=== PATIENT | male | born 1975 | race Caucasian/White ===

== ENCOUNTER 2018-07-02 07:05 | Day surgery (SDC) | payer MEDICARE, MEDICAID ==
[2018-07-02] VITALS (8 sets, daily range): BP systolic 136–158; BP diastolic 83–102
[~2018-07-02] VITALS: Ht 172.7 cm; Wt 104.8 kg
[~2018-07-02 07:05] MED LIST: HYDR2TAB28 PO; INSU100V36 SQ; LIDOcaine 1% 30ml preserv. free vial SQ STA; NPH,100V SQ; OXYM10TA22 PO; PROP40TA7 PO
[2018-07-02 07:42] LABS: BASOPHILS % (AUTO) 0.6 % (0-1); EOSINOPHILS # (AUTO) 0.1 X10'3 (0-0.9); EOSINOPHILS % (AUTO) 1.2 % (0-6); HEMATOCRIT 36.6 % (42.0-52.0); HEMOGLOBIN 12.7 g/dl (14.0-17.9); LYMPHOCYTES # (AUTO) 0.9 X10'3 (1.1-4.8); LYMPHOCYTES % (AUTO) 17.4 % (21-51); MEAN CORPUSCULAR HEMOGLOBIN 28.9 PG (27.0-31.0); MEAN CORPUSCULAR HGB CONC 34.7 g/dL (33.0-36.5); MEAN CORPUSCULAR VOLUME 83.3 FL (78-98); MEAN PLATELET VOLUME 8.9 FL (7.4-10.4); MONOCYTES # (AUTO) 0.6 X10'3 (0-0.9); MONOCYTES % (AUTO) 11.6 % (2-12); NEUTROPHILS # (AUTO) 3.4 X10'3 (1.8-7.7); NEUTROPHILS % (AUTO) 69.2 % (42-75); PLATELET COUNT 119 X10'3 (140-440); RED BLOOD COUNT 4.39 X10'6 (4.70-6.10); RED CELL DISTRIBUTION WIDTH 14.8 % (11.5-14.5); WHITE BLOOD COUNT 4.9 X10'3 (4.5-11.0)
[2018-07-02 07:49] LABS: ALBUMIN 2.5 G/DL (3.4-5.0); ANION GAP 8 (8-16); BLOOD UREA NITROGEN 16 MG/DL (7-18); BUN/CREATININE RATIO 22.9 (5.4-32.0); CHLORIDE 96 MMOL/L (99-107); GLUCOSE 233 MG/DL (70-104); POTASSIUM 4.3 MMOL/L (3.5-5.1); SODIUM 132 MMOL/L (135-145); TOTAL CARBON DIOXIDE 28.2 MMOL/L (24-32); eGFR > 90 ML/MIN
[2018-07-02] MEDS ORDERED: ceFAZolin 1GM/D5W- ADD-VANTAGE 50 ML IV ONE (07:52)
[2018-07-02] MEDS ORDERED: normal saline 1000ml 1,000 ML IV PRN (07:55)
[2018-07-02 07:57] LABS: INR 1.2 INR
[2018-07-02] MEDS ORDERED: albumin 25% 100mL bottle x 1 IV PRN (08:25)
[2018-07-02] MEDS ORDERED: FURO-149 PO (08:28)
[2018-07-02] MEDS ORDERED: LANTUS SQ (08:28)
[2018-07-02] MEDS ORDERED: MUPI22OI30 TOP (08:28)
[2018-07-02] MEDS ORDERED: DOXY-200 PO (08:28)
[2018-07-02] MEDS ORDERED: ATR0.5NEB NEB (08:28)
[2018-07-02] MEDS ORDERED: HYDROCODONE PO (08:28)
[2018-07-02] MEDS ORDERED: SPIR100T5 PO (08:28)
[2018-07-02 11:37] LABS: ALBUMIN,BODY FLUID 0.7 G/DL; GLUCOSE,BODY FLUID 235 MG/DL; LDH,BODY FLUID 95 U/L
[2018-07-02 11:58] LABS: TOTAL PROTEIN,BODY FLUID < 2.0 G/DL
== END 2018-07-02 11:15 | disposition home or self-care (01) ==
LOC: SSTAY O 07:05
PROVIDERS: ATTEND Radiology Diagnostic Radiology
DX: R18.8 Other ascites (principal); K74.60 Unspecified cirrhosis of liver; I81 Portal vein thrombosis; J45.909 Unspecified asthma, uncomplicated; I10 Essential (primary) hypertension; K21.9 Gastro-esophageal reflux disease without esophagitis; E11.42 Type 2 diabetes mellitus with diabetic polyneuropathy; F41.9 Anxiety disorder, unspecified; Z98.890 Other specified postprocedural states; Z88.8 Allergy status to other drugs, medicaments and biological substances; Z88.1 Allergy status to other antibiotic agents; Z88.0 Allergy status to penicillin; Z88.2 Allergy status to sulfonamides; Z88.6 Allergy status to analgesic agent; Z91.013 Allergy to seafood; Z79.4 Long term (current) use of insulin; Z79.899 Other long term (current) drug therapy
CPT/HCPCS: 36415; 49083; 76700; 80048; 82042; 82945; 82948; 83615; 84157; 85025; 85610; 87070; 93975; C1729; J3490; J7030; P9047; 88108; 88305

== ENCOUNTER 2018-09-17 07:03 | Day surgery (SDC) | payer MEDICARE, MEDICAID ==
[2018-09-17] VITALS (9 sets, daily range): BP systolic 110–137; BP diastolic 47–78
[~2018-09-17] VITALS: Ht 172.7 cm; Wt 98.9 kg
[~2018-09-17 07:03] MED LIST changes: +ATR0.5NEB NEB; +DOXY-200 PO; +FURO-149 PO; +LANTUS SQ; -LIDOcaine 1% 30ml preserv. free vial SQ STA; -NPH,100V SQ; -OXYM10TA22 PO; -PROP40TA7 PO; +SPIR100T5 PO; +ZAR2.5T PO
[2018-09-17] MEDS ORDERED: normal saline 1000ml 1,000 ML IV PRN (07:40)
[2018-09-17] MEDS: albumin 25% 100mL bottle x 1 IV PRN ×2 (09:32→10:06)
== END 2018-09-17 10:15 | disposition home or self-care (01) ==
LOC: SSTAY O 07:03
PROVIDERS: ATTEND Radiology Diagnostic Radiology
DX: R18.8 Other ascites (principal); K74.60 Unspecified cirrhosis of liver; J45.909 Unspecified asthma, uncomplicated; F41.9 Anxiety disorder, unspecified; I10 Essential (primary) hypertension; K21.9 Gastro-esophageal reflux disease without esophagitis; E11.42 Type 2 diabetes mellitus with diabetic polyneuropathy; Z79.4 Long term (current) use of insulin; Z79.899 Other long term (current) drug therapy; Z98.890 Other specified postprocedural states
CPT/HCPCS: 49083; 82948; C1729; J7030; P9047

== ENCOUNTER 2018-10-01 09:06 | Day surgery (SDC) | payer MEDICARE, MEDICAID ==
[~2018-10-01] VITALS: Ht 172.7 cm; Wt 101.2 kg
[~2018-10-01 09:06] MED LIST changes: -DOXY-200 PO; +DOXY-243 PO
[2018-10-01 09:30] VITALS: BP 154/89
[2018-10-01] MEDS ORDERED: albumin 25% 100mL bottle x 1 IV PRN (09:30)
[2018-10-01] MEDS ORDERED: normal saline 1000ml 1,000 ML IV PRN (09:30)
[2018-10-01 09:51] VITALS: BP 126/81
[2018-10-01 10:06] VITALS: BP 123/66
[2018-10-01 10:15] VITALS: BP 112/65
[2018-10-01 10:45] VITALS: BP 120/76
== END 2018-10-01 10:45 | disposition home or self-care (01) ==
LOC: SSTAY O 09:06
PROVIDERS: ATTEND Radiology Vascular & Interventional Radiology
DX: R18.8 Other ascites (principal); K74.60 Unspecified cirrhosis of liver; J45.909 Unspecified asthma, uncomplicated; F41.9 Anxiety disorder, unspecified; I10 Essential (primary) hypertension; K21.9 Gastro-esophageal reflux disease without esophagitis; E11.40 Type 2 diabetes mellitus with diabetic neuropathy, unspecified; E11.620 Type 2 diabetes mellitus with diabetic dermatitis; Z98.890 Other specified postprocedural states; Z91.013 Allergy to seafood; Z88.8 Allergy status to other drugs, medicaments and biological substances; Z88.0 Allergy status to penicillin; Z91.041 Radiographic dye allergy status; Z79.899 Other long term (current) drug therapy; Z79.4 Long term (current) use of insulin; Z88.5 Allergy status to narcotic agent
CPT/HCPCS: 49083; C1729; J7030; P9047

== ENCOUNTER 2018-10-08 08:27 | Day surgery (SDC) | payer MEDICARE, MEDICAID ==
[~2018-10-08] VITALS: Ht 175.3 cm; Wt 98.3 kg
[2018-10-08] MEDS ORDERED: normal saline 1000ml 1,000 ML IV PRN (08:55)
[2018-10-08] MEDS ORDERED: albumin 25% 100mL bottle x 1 IV PRN (08:55)
[2018-10-08 09:00] VITALS: BP 131/77
[2018-10-08 09:15] VITALS: BP 135/85
[2018-10-08 09:30] VITALS: BP 120/67
[2018-10-08 09:45] VITALS: BP 106/64
[2018-10-08] MEDS ORDERED: FURO80TA87 PO (09:58)
[2018-10-08] MEDS ORDERED: IPRA4AER IH (09:58)
[2018-10-08 10:00] VITALS: BP 104/40
[2018-10-08 10:07] VITALS: BP 117/63
== END 2018-10-08 10:15 | disposition home or self-care (01) ==
LOC: SSTAY O 08:27
PROVIDERS: ATTEND Radiology Vascular & Interventional Radiology
DX: R18.8 Other ascites (principal); K74.60 Unspecified cirrhosis of liver; K75.81 Nonalcoholic steatohepatitis (NASH)
CPT/HCPCS: 49083; C1729; J7030; P9047

== ENCOUNTER 2018-10-16 07:37 | Day surgery (SDC) | payer MEDICARE, MEDICAID ==
[~2018-10-16] VITALS: Ht 172.7 cm; Wt 98.3 kg
[2018-10-16] VITALS (7 sets, daily range): BP systolic 113–145; BP diastolic 71–84
[~2018-10-16 07:37] MED LIST changes: -ATR0.5NEB NEB; -DOXY-243 PO; -FURO-149 PO; +FURO80TA87 PO; +IPRA4AER IH
[2018-10-16] MEDS ORDERED: normal saline 1000ml 1,000 ML IV PRN (08:00)
[2018-10-16] MEDS ORDERED: albumin 25% 100mL bottle x 1 IV PRN (08:00)
[2018-10-16] MEDS ORDERED: BUDE10.22 INH (08:46)
[2018-10-16] MEDS ORDERED: ALBU18HF2 INH (08:46)
== END 2018-10-16 11:50 | disposition home or self-care (01) ==
LOC: SSTAY O 07:37
PROVIDERS: ATTEND Radiology Diagnostic Radiology
DX: R18.8 Other ascites (principal); J90 Pleural effusion, not elsewhere classified; K74.60 Unspecified cirrhosis of liver
CPT/HCPCS: 32555; 49083; 71045; C1729; J7030; P9047

== ENCOUNTER 2018-10-23 08:26 | Day surgery (SDC) | payer MEDICARE, MEDICAID ==
[~2018-10-23] VITALS: Ht 172.7 cm; Wt 96.9 kg
[2018-10-23] VITALS (8 sets, daily range): BP systolic 103–155; BP diastolic 60–80
[~2018-10-23 08:26] MED LIST changes: +ALBU18HF2 INH; +BUDE10.22 INH; -IPRA4AER IH
[2018-10-23] MEDS ORDERED: normal saline 1000ml 1,000 ML IV PRN (08:45)
[2018-10-23] MEDS ORDERED: albumin 25% 100mL bottle x 1 IV PRN (08:45)
== END 2018-10-23 12:05 | disposition home or self-care (01) ==
LOC: SSTAY O 08:26
PROVIDERS: ATTEND Radiology Diagnostic Radiology
DX: J90 Pleural effusion, not elsewhere classified (principal); R18.8 Other ascites; K74.60 Unspecified cirrhosis of liver; E11.40 Type 2 diabetes mellitus with diabetic neuropathy, unspecified; J45.909 Unspecified asthma, uncomplicated; F41.9 Anxiety disorder, unspecified; I10 Essential (primary) hypertension; K21.9 Gastro-esophageal reflux disease without esophagitis; Z98.890 Other specified postprocedural states; Z79.899 Other long term (current) drug therapy; Z79.84 Long term (current) use of oral hypoglycemic drugs; Z88.0 Allergy status to penicillin; Z88.8 Allergy status to other drugs, medicaments and biological substances; Z91.013 Allergy to seafood; Z91.041 Radiographic dye allergy status
CPT/HCPCS: 32555; 49083; 71045; C1729; J7030; P9047; 76937

== ENCOUNTER 2018-10-30 08:13 | Day surgery (SDC) | payer MEDICARE, MEDICAID ==
[2018-10-30] VITALS (9 sets, daily range): BP systolic 104–125; BP diastolic 60–82
[~2018-10-30] VITALS: Ht 172.7 cm; Wt 97.0 kg
[2018-10-30] MEDS ORDERED: albumin 25% 100mL bottle x 1 IV PRN (09:05)
[2018-10-30] MEDS ORDERED: FURO80TA3 PO (09:05)
[2018-10-30] MEDS ORDERED: SPIR100T5 PO (09:05)
[2018-10-30] MEDS ORDERED: POLY17PO10 PO (09:05)
[2018-10-30] MEDS ORDERED: normal saline 1000ml 1,000 ML IV PRN (09:05)
== END 2018-10-30 11:55 | disposition home or self-care (01) ==
LOC: SSTAY O 08:13
PROVIDERS: ATTEND Radiology Diagnostic Radiology
DX: R18.8 Other ascites (principal); K74.60 Unspecified cirrhosis of liver; J90 Pleural effusion, not elsewhere classified; J98.11 Atelectasis; J45.909 Unspecified asthma, uncomplicated; F41.9 Anxiety disorder, unspecified; I10 Essential (primary) hypertension; K21.9 Gastro-esophageal reflux disease without esophagitis; E11.40 Type 2 diabetes mellitus with diabetic neuropathy, unspecified; Z98.890 Other specified postprocedural states; D69.59 Other secondary thrombocytopenia; Z79.899 Other long term (current) drug therapy; Z79.4 Long term (current) use of insulin; Z88.0 Allergy status to penicillin; Z91.013 Allergy to seafood; Z88.8 Allergy status to other drugs, medicaments and biological substances; Z91.041 Radiographic dye allergy status
CPT/HCPCS: 32555; 49083; 71045; C1729; J7030; P9047

== ENCOUNTER 2018-11-06 08:08 | Day surgery (SDC) | payer MEDICARE, MEDICAID ==
[~2018-11-06] VITALS: Ht 172.7 cm; Wt 93.8 kg
[~2018-11-06 08:08] MED LIST changes: +FURO80TA3 PO; -FURO80TA87 PO; +POLY17PO10 PO
[2018-11-06] MEDS ORDERED: normal saline 1000ml 1,000 ML IV PRN (08:30)
[2018-11-06] MEDS ORDERED: albumin 25% 100mL bottle x 1 IV PRN (08:30)
[2018-11-06 08:42] VITALS: BP 112/68
[2018-11-06 08:54] VITALS: BP 132/80
[2018-11-06 09:15] VITALS: BP 129/72
[2018-11-06 09:30] VITALS: BP 118/74
[2018-11-06 10:00] VITALS: BP 113/69
[2018-11-06] MEDS ORDERED: CETI10CA PO (10:00)
== END 2018-11-06 10:40 | disposition home or self-care (01) ==
LOC: SSTAY O 08:08
PROVIDERS: ATTEND Radiology Diagnostic Radiology
DX: R18.8 Other ascites (principal); K74.60 Unspecified cirrhosis of liver
CPT/HCPCS: 49083; C1729; J7030; 76937; P9047

== ENCOUNTER 2018-11-14 07:36 | Day surgery (SDC) | payer MEDICARE, MEDICAID ==
[2018-11-14] VITALS (7 sets, daily range): BP systolic 100–143; BP diastolic 41–105
[~2018-11-14] VITALS: Ht 172.7 cm; Wt 96.8 kg
[~2018-11-14 07:36] MED LIST changes: +CETI10CA PO
[2018-11-14] MEDS ORDERED: normal saline 1000ml 1,000 ML IV PRN (08:00)
[2018-11-14] MEDS ORDERED: FURO-149 PO (08:00)
[2018-11-14] MEDS ORDERED: albumin 25% 100mL bottle x 1 IV PRN (08:00)
== END 2018-11-14 10:30 | disposition home or self-care (01) ==
LOC: SSTAY O 07:36
PROVIDERS: ATTEND Radiology Vascular & Interventional Radiology
DX: R18.8 Other ascites (principal); K74.60 Unspecified cirrhosis of liver; J45.909 Unspecified asthma, uncomplicated; F41.9 Anxiety disorder, unspecified; I10 Essential (primary) hypertension; K21.9 Gastro-esophageal reflux disease without esophagitis; E11.40 Type 2 diabetes mellitus with diabetic neuropathy, unspecified; D69.6 Thrombocytopenia, unspecified; Z88.0 Allergy status to penicillin; Z88.8 Allergy status to other drugs, medicaments and biological substances; Z91.013 Allergy to seafood; Z91.041 Radiographic dye allergy status; Z79.4 Long term (current) use of insulin; Z79.899 Other long term (current) drug therapy
CPT/HCPCS: 49083; C1729; J7030; P9047

== ENCOUNTER 2018-11-19 07:46 | Day surgery (SDC) | payer MEDICARE, MEDICAID ==
[2018-11-19] VITALS (7 sets, daily range): BP systolic 128–162; BP diastolic 76–92
[~2018-11-19] VITALS: Ht 172.7 cm; Wt 98.2 kg
[~2018-11-19 07:46] MED LIST changes: +FURO-149 PO
[2018-11-19] MEDS ORDERED: albumin 25% 100mL bottle x 1 IV PRN (08:15)
[2018-11-19] MEDS ORDERED: normal saline 1000ml 1,000 ML IV PRN (08:15)
== END 2018-11-19 10:40 | disposition home or self-care (01) ==
LOC: SSTAY O 07:46
PROVIDERS: ATTEND Radiology Vascular & Interventional Radiology
DX: R18.8 Other ascites (principal); K74.60 Unspecified cirrhosis of liver; J45.909 Unspecified asthma, uncomplicated; F41.9 Anxiety disorder, unspecified; I10 Essential (primary) hypertension; K21.9 Gastro-esophageal reflux disease without esophagitis; D69.6 Thrombocytopenia, unspecified; G62.9 Polyneuropathy, unspecified; Z88.0 Allergy status to penicillin; Z88.8 Allergy status to other drugs, medicaments and biological substances; Z91.013 Allergy to seafood; Z91.041 Radiographic dye allergy status; Z79.4 Long term (current) use of insulin; Z79.899 Other long term (current) drug therapy
CPT/HCPCS: 49083; C1729; J7030; P9047

== ENCOUNTER 2018-11-25 08:10 | Day surgery (SDC) | payer MEDICARE, MEDICAID ==
[~2018-11-25] VITALS: Ht 172.7 cm; Wt 99.7 kg
[2018-11-25 08:21] VITALS: BP 133/81
[2018-11-25] MEDS ORDERED: albumin 25% 100mL bottle x 1 IV PRN (08:30)
[2018-11-25] MEDS ORDERED: normal saline 1000ml 1,000 ML IV PRN (08:30)
[2018-11-25 09:57] VITALS: BP 133/81
[2018-11-25 10:02] VITALS: BP 131/67
[2018-11-25 10:17] VITALS: BP 127/67
[2018-11-25 10:32] VITALS: BP 118/56
[2018-11-25 10:46] VITALS: BP 120/66
== END 2018-11-25 11:15 | disposition home or self-care (01) ==
LOC: SSTAY O 08:10
PROVIDERS: ATTEND Radiology Diagnostic Radiology
DX: R18.8 Other ascites (principal); K74.60 Unspecified cirrhosis of liver; J45.909 Unspecified asthma, uncomplicated; F41.9 Anxiety disorder, unspecified; I10 Essential (primary) hypertension; K21.9 Gastro-esophageal reflux disease without esophagitis; E11.40 Type 2 diabetes mellitus with diabetic neuropathy, unspecified; D69.6 Thrombocytopenia, unspecified; Z88.0 Allergy status to penicillin; Z88.8 Allergy status to other drugs, medicaments and biological substances; Z91.013 Allergy to seafood; Z91.041 Radiographic dye allergy status; Z79.899 Other long term (current) drug therapy; Z79.4 Long term (current) use of insulin; Z98.890 Other specified postprocedural states
CPT/HCPCS: 49083; C1729; J7030; P9047; 76937

== ENCOUNTER 2018-12-02 08:08 | Day surgery (SDC) | payer MEDICARE, MEDICAID ==
[~2018-12-02] VITALS: Ht 147.3 cm; Wt 101.5 kg
[~2018-12-02 08:08] MED LIST changes: -ZAR2.5T PO
[2018-12-02 08:29] VITALS: BP 132/81
[2018-12-02] MEDS ORDERED: normal saline 1000ml 1,000 ML IV PRN (08:30)
[2018-12-02] MEDS ORDERED: albumin 25% 100mL bottle x 1 IV PRN (08:30)
[2018-12-02 09:17] VITALS: BP 132/81
[2018-12-02 09:18] VITALS: BP 120/66
[2018-12-02 09:30] VITALS: BP 115/61
[2018-12-02 09:45] VITALS: BP 116/77
== END 2018-12-02 09:50 | disposition home or self-care (01) ==
LOC: SSTAY O 08:08
PROVIDERS: ATTEND Radiology Diagnostic Radiology
DX: R18.8 Other ascites (principal); K74.60 Unspecified cirrhosis of liver; J45.909 Unspecified asthma, uncomplicated; F41.9 Anxiety disorder, unspecified; I10 Essential (primary) hypertension; K21.9 Gastro-esophageal reflux disease without esophagitis; E11.40 Type 2 diabetes mellitus with diabetic neuropathy, unspecified; D69.59 Other secondary thrombocytopenia; Z98.890 Other specified postprocedural states; Z88.0 Allergy status to penicillin; Z88.8 Allergy status to other drugs, medicaments and biological substances; Z91.013 Allergy to seafood; Z91.041 Radiographic dye allergy status; Z79.4 Long term (current) use of insulin; Z79.899 Other long term (current) drug therapy
CPT/HCPCS: 49083; C1729; J7030; 76937

== ENCOUNTER 2018-12-09 07:56 | Day surgery (SDC) | payer MEDICARE, MEDICAID ==
[2018-12-09] VITALS (12 sets, daily range): BP systolic 101–127; BP diastolic 63–80
[~2018-12-09] VITALS: Ht 172.7 cm; Wt 98.9 kg
[2018-12-09] MEDS ORDERED: normal saline 1000ml 1,000 ML IV PRN (08:15)
[2018-12-09] MEDS ORDERED: albumin 25% 100mL bottle x 1 IV PRN (08:15)
== END 2018-12-09 11:50 | disposition home or self-care (01) ==
LOC: SSTAY O 07:56
PROVIDERS: ATTEND Radiology Diagnostic Radiology
DX: J90 Pleural effusion, not elsewhere classified (principal); R18.8 Other ascites; K74.60 Unspecified cirrhosis of liver; J45.909 Unspecified asthma, uncomplicated; F41.9 Anxiety disorder, unspecified; I10 Essential (primary) hypertension; K21.9 Gastro-esophageal reflux disease without esophagitis; E11.40 Type 2 diabetes mellitus with diabetic neuropathy, unspecified; D69.59 Other secondary thrombocytopenia; Z88.0 Allergy status to penicillin; Z88.8 Allergy status to other drugs, medicaments and biological substances; Z88.1 Allergy status to other antibiotic agents; Z91.013 Allergy to seafood; Z91.041 Radiographic dye allergy status; Z79.4 Long term (current) use of insulin; Z79.899 Other long term (current) drug therapy
CPT/HCPCS: 32555; 49083; 71045; C1729; J7030; P9047; 76937

== ENCOUNTER 2018-12-16 08:01 | Day surgery (SDC) | payer MEDICARE, MEDICAID ==
[~2018-12-16] VITALS: Ht 172.7 cm; Wt 101.1 kg
[2018-12-16] VITALS (10 sets, daily range): BP systolic 105–151; BP diastolic 65–92
[2018-12-16] MEDS ORDERED: normal saline 1000ml 1,000 ML IV PRN (08:20)
[2018-12-16] MEDS ORDERED: albumin 25% 100mL bottle x 1 IV PRN (10:40)
== END 2018-12-16 11:30 | disposition home or self-care (01) ==
LOC: SSTAY O 08:01
PROVIDERS: ATTEND Radiology Vascular & Interventional Radiology
DX: K74.69 Other cirrhosis of liver (principal); R18.8 Other ascites
CPT/HCPCS: 49083; 76937; J7030; P9047

== ENCOUNTER 2018-12-20 07:02 | Day surgery (SDC) | payer MEDICARE, MEDICAID ==
[~2018-12-20] VITALS: Ht 172.7 cm; Wt 99.6 kg
[2018-12-20] VITALS (10 sets, daily range): BP systolic 122–143; BP diastolic 58–89
[2018-12-20] MEDS ORDERED: normal saline 1000ml 1,000 ML IV PRN (08:25)
[2018-12-20] MEDS ORDERED: albumin 25% 100mL bottle x 1 IV PRN (08:25)
== END 2018-12-20 10:50 | disposition home or self-care (01) ==
LOC: SSTAY O 07:02
PROVIDERS: ATTEND Radiology Vascular & Interventional Radiology
DX: R18.8 Other ascites (principal); J90 Pleural effusion, not elsewhere classified; J45.909 Unspecified asthma, uncomplicated; F41.9 Anxiety disorder, unspecified; I10 Essential (primary) hypertension; K21.9 Gastro-esophageal reflux disease without esophagitis; E11.40 Type 2 diabetes mellitus with diabetic neuropathy, unspecified; D69.6 Thrombocytopenia, unspecified; Z88.0 Allergy status to penicillin; Z88.8 Allergy status to other drugs, medicaments and biological substances; Z88.5 Allergy status to narcotic agent; Z91.013 Allergy to seafood; Z88.1 Allergy status to other antibiotic agents; Z91.041 Radiographic dye allergy status; Z79.4 Long term (current) use of insulin; Z79.899 Other long term (current) drug therapy
CPT/HCPCS: 32555; 49083; 71045; C1729; J7030; P9047

== ENCOUNTER 2018-12-27 07:59 | Day surgery (SDC) | payer MEDICARE, MEDICAID ==
[~2018-12-27] VITALS: Ht 172.7 cm; Wt 97.5 kg
[2018-12-27] MEDS ORDERED: normal saline 1000ml 1,000 ML IV PRN (08:25)
[2018-12-27] MEDS ORDERED: albumin 25% 100mL bottle x 1 IV PRN (08:25)
[2018-12-27 09:30] VITALS: BP 126/77
[2018-12-27 09:45] VITALS: BP 130/76
[2018-12-27 10:00] VITALS: BP 127/94
[2018-12-27 10:15] VITALS: BP 131/72
[2018-12-27 10:30] VITALS: BP_SYST 113; BP_SYST 146; BP_DIAS 36; BP_DIAS 64
== END 2018-12-27 10:35 | disposition home or self-care (01) ==
LOC: SSTAY O 07:59
PROVIDERS: ATTEND Radiology Vascular & Interventional Radiology
DX: R18.8 Other ascites (principal); K74.60 Unspecified cirrhosis of liver; R06.02 Shortness of breath; J90 Pleural effusion, not elsewhere classified; J45.909 Unspecified asthma, uncomplicated; F41.9 Anxiety disorder, unspecified; I10 Essential (primary) hypertension; K21.9 Gastro-esophageal reflux disease without esophagitis; E11.40 Type 2 diabetes mellitus with diabetic neuropathy, unspecified; D69.59 Other secondary thrombocytopenia; Z88.0 Allergy status to penicillin; Z88.8 Allergy status to other drugs, medicaments and biological substances; Z91.013 Allergy to seafood; Z88.5 Allergy status to narcotic agent; Z88.1 Allergy status to other antibiotic agents; Z91.041 Radiographic dye allergy status; Z79.899 Other long term (current) drug therapy; Z79.4 Long term (current) use of insulin
CPT/HCPCS: 49083; 76604; C1729; J7030; P9047

== ENCOUNTER 2019-01-07 08:10 | Day surgery (SDC) | payer MEDICARE, MEDICAID ==
[2019-01-07] VITALS (7 sets, daily range): BP systolic 124–143; BP diastolic 70–84
[~2019-01-07] VITALS: Ht 172.7 cm; Wt 102.2 kg
[2019-01-07] MEDS ORDERED: normal saline 1000ml 1,000 ML IV PRN (08:40)
[2019-01-07] MEDS ORDERED: albumin 25% 100mL bottle x 1 IV PRN (08:40)
[2019-01-07] MEDS ORDERED: FLU VACC QS 2019-20 (6 MOS UP) 60 MCG/0.5 ML VIAL IMVAC ONE (10:00)
== END 2019-01-07 11:20 | disposition home or self-care (01) ==
LOC: SSTAY O 08:10
PROVIDERS: ATTEND Radiology Diagnostic Radiology
DX: R18.8 Other ascites (principal); J90 Pleural effusion, not elsewhere classified; Z23 Encounter for immunization; Z88.5 Allergy status to narcotic agent
CPT/HCPCS: 32555; 49083; 71045; C1729; G0008; J7030; P9047; Q2037

== ENCOUNTER 2019-01-13 07:23 | Day surgery (SDC) | payer MEDICARE, MEDICAID ==
[~2019-01-13] VITALS: Ht 172.7 cm; Wt 101.3 kg
[2019-01-13 07:36] VITALS: BP 140/81
[2019-01-13] MEDS ORDERED: FLUC200T PO (07:42)
[2019-01-13 09:17] VITALS: BP 117/68
[2019-01-13 09:30] VITALS: BP 121/69
[2019-01-13 09:45] VITALS: BP 131/55
[2019-01-13] MEDS ORDERED: albumin 25% 100mL bottle x 1 IV PRN (09:45)
== END 2019-01-13 09:55 | disposition home or self-care (01) ==
LOC: SSTAY O 07:23
PROVIDERS: ATTEND Radiology Vascular & Interventional Radiology
DX: R18.8 Other ascites (principal); K74.60 Unspecified cirrhosis of liver; R10.30 Lower abdominal pain, unspecified; J45.909 Unspecified asthma, uncomplicated; F41.9 Anxiety disorder, unspecified; I10 Essential (primary) hypertension; K21.9 Gastro-esophageal reflux disease without esophagitis; E11.40 Type 2 diabetes mellitus with diabetic neuropathy, unspecified; E11.620 Type 2 diabetes mellitus with diabetic dermatitis; D69.59 Other secondary thrombocytopenia; Z98.890 Other specified postprocedural states; Z88.0 Allergy status to penicillin; Z88.8 Allergy status to other drugs, medicaments and biological substances; Z91.013 Allergy to seafood; Z91.041 Radiographic dye allergy status; Z79.4 Long term (current) use of insulin; Z79.899 Other long term (current) drug therapy
CPT/HCPCS: 49083; C1729; 32555; 76937

== ENCOUNTER 2019-01-20 08:01 | Day surgery (SDC) | payer MEDICARE, MEDICAID ==
[2019-01-20] VITALS (8 sets, daily range): BP systolic 111–151; BP diastolic 63–87
[~2019-01-20] VITALS: Ht 172.7 cm; Wt 101.9 kg
[~2019-01-20 08:01] MED LIST changes: +FLUC200T PO
[2019-01-20] MEDS ORDERED: albumin 25% 100mL bottle x 1 IV PRN (08:15)
[2019-01-20] MEDS ORDERED: normal saline 1000ml 1,000 ML IV PRN (08:15)
[2019-01-20] MEDS ORDERED: IPRA4AER IH (08:30)
[2019-01-20] MEDS ORDERED: SPIR100T PO (08:30)
== END 2019-01-20 10:44 | disposition home or self-care (01) ==
LOC: SSTAY O 08:01
PROVIDERS: ATTEND Radiology Diagnostic Radiology
DX: R18.8 Other ascites (principal); J90 Pleural effusion, not elsewhere classified; K74.60 Unspecified cirrhosis of liver; J45.909 Unspecified asthma, uncomplicated; F41.9 Anxiety disorder, unspecified; I10 Essential (primary) hypertension; K21.9 Gastro-esophageal reflux disease without esophagitis; E11.40 Type 2 diabetes mellitus with diabetic neuropathy, unspecified; D69.6 Thrombocytopenia, unspecified; Z88.8 Allergy status to other drugs, medicaments and biological substances; Z88.0 Allergy status to penicillin; Z88.5 Allergy status to narcotic agent; Z91.013 Allergy to seafood; Z88.1 Allergy status to other antibiotic agents; Z91.041 Radiographic dye allergy status; Z79.899 Other long term (current) drug therapy; Z79.4 Long term (current) use of insulin
CPT/HCPCS: 32555; 49083; 71045; C1729; J7030; P9047

== ENCOUNTER 2019-01-27 07:56 | Day surgery (SDC) | payer MEDICARE, MEDICAID ==
[~2019-01-27] VITALS: Ht 172.7 cm; Wt 93.8 kg
[~2019-01-27 07:56] MED LIST changes: -ALBU18HF2 INH; +IPRA4AER IH; +SPIR100T PO; -SPIR100T5 PO
[2019-01-27 08:13] VITALS: BP 133/72
[2019-01-27] MEDS ORDERED: albumin 25% 100mL bottle x 1 IV PRN (08:20)
[2019-01-27] MEDS ORDERED: normal saline 1000ml 1,000 ML IV PRN (08:20)
[2019-01-27 08:35] VITALS: BP 127/74
[2019-01-27 08:40] VITALS: BP 127/74
[2019-01-27 08:45] VITALS: BP 117/67
[2019-01-27] MEDS ORDERED: [UNRECOGNIZED DRUG - OTHER] PO (08:53)
[2019-01-27 09:00] VITALS: BP 117/65
[2019-01-27 09:15] VITALS: BP 105/54
== END 2019-01-27 09:25 | disposition home or self-care (01) ==
LOC: SSTAY O 07:56
PROVIDERS: ATTEND Radiology Vascular & Interventional Radiology
DX: R18.8 Other ascites (principal); K74.60 Unspecified cirrhosis of liver; J45.909 Unspecified asthma, uncomplicated; F41.9 Anxiety disorder, unspecified; I10 Essential (primary) hypertension; K21.9 Gastro-esophageal reflux disease without esophagitis; E11.40 Type 2 diabetes mellitus with diabetic neuropathy, unspecified; D69.59 Other secondary thrombocytopenia; Z98.890 Other specified postprocedural states; Z88.0 Allergy status to penicillin; Z88.8 Allergy status to other drugs, medicaments and biological substances; Z88.1 Allergy status to other antibiotic agents; Z91.013 Allergy to seafood; Z88.5 Allergy status to narcotic agent; Z91.041 Radiographic dye allergy status; Z79.899 Other long term (current) drug therapy
CPT/HCPCS: 49083; C1729; J7030

== ENCOUNTER 2019-02-03 08:04 | Day surgery (SDC) | payer MEDICARE, MEDICAID ==
[~2019-02-03] VITALS: Ht 172.7 cm; Wt 88.3 kg
[~2019-02-03 08:04] MED LIST changes: -FLUC200T PO; -FURO-149 PO; -FURO80TA3 PO; +[UNRECOGNIZED DRUG - OTHER] PO
[2019-02-03 08:34] VITALS: BP 123/76
[2019-02-03] MEDS ORDERED: normal saline 1000ml 1,000 ML IV PRN (08:35)
[2019-02-03] MEDS ORDERED: albumin 25% 100mL bottle x 1 IV PRN (08:35)
[2019-02-03 09:56] VITALS: BP 130/80
[2019-02-03 10:00] VITALS: BP 110/65
[2019-02-03 10:15] VITALS: BP 120/66
== END 2019-02-03 10:25 | disposition home or self-care (01) ==
LOC: SSTAY O 08:04
PROVIDERS: ATTEND Radiology Diagnostic Radiology
DX: R18.8 Other ascites (principal); K74.69 Other cirrhosis of liver; J45.909 Unspecified asthma, uncomplicated; F41.9 Anxiety disorder, unspecified; I10 Essential (primary) hypertension; K21.9 Gastro-esophageal reflux disease without esophagitis; E11.40 Type 2 diabetes mellitus with diabetic neuropathy, unspecified; D69.59 Other secondary thrombocytopenia; Z88.0 Allergy status to penicillin; Z88.5 Allergy status to narcotic agent; Z88.8 Allergy status to other drugs, medicaments and biological substances; Z88.1 Allergy status to other antibiotic agents; Z91.013 Allergy to seafood; Z91.041 Radiographic dye allergy status; Z79.4 Long term (current) use of insulin; Z79.899 Other long term (current) drug therapy
CPT/HCPCS: 49083; C1729; J7030

== ENCOUNTER 2019-02-10 07:57 | Day surgery (SDC) | payer MEDICARE, MEDICAID ==
[~2019-02-10] VITALS: Ht 172.7 cm; Wt 85.2 kg
[2019-02-10 08:10] VITALS: BP 118/84
[2019-02-10] MEDS ORDERED: normal saline 1,000 ML IV SCH (08:20)
[2019-02-10] MEDS ORDERED: albumin 25% 100mL bottle x 1 IV PRN (08:20)
[2019-02-10] MEDS ORDERED: albumin (human) 25% 100 ML IV solution IV ONE (09:25)
== END 2019-02-10 10:15 | disposition home or self-care (01) ==
LOC: SSTAY O 07:57
PROVIDERS: ATTEND Radiology Vascular & Interventional Radiology
DX: R18.8 Other ascites (principal); J45.909 Unspecified asthma, uncomplicated; F41.9 Anxiety disorder, unspecified; K21.9 Gastro-esophageal reflux disease without esophagitis; E11.40 Type 2 diabetes mellitus with diabetic neuropathy, unspecified; D69.59 Other secondary thrombocytopenia; Z98.890 Other specified postprocedural states; Z88.0 Allergy status to penicillin; Z91.013 Allergy to seafood; Z88.5 Allergy status to narcotic agent; Z88.2 Allergy status to sulfonamides; Z91.041 Radiographic dye allergy status; Z79.4 Long term (current) use of insulin; Z79.899 Other long term (current) drug therapy
CPT/HCPCS: 76705; J7030; P9047; 76937

== ENCOUNTER 2019-02-17 07:49 | Day surgery (SDC) | payer MEDICARE, MEDICAID ==
[~2019-02-17] VITALS: Ht 172.7 cm; Wt 82.9 kg
[2019-02-17 08:01] VITALS: BP 120/73
[2019-02-17] MEDS ORDERED: normal saline 1000ml 1,000 ML IV PRN (08:15)
[2019-02-17] MEDS ORDERED: albumin 25% 100mL bottle x 1 IV PRN (08:15)
[2019-02-17 09:02] VITALS: BP_SYST 105; BP_SYST 120; BP_DIAS 71; BP_DIAS 73
[2019-02-17 09:17] VITALS: BP 109/67
== END 2019-02-17 09:25 | disposition home or self-care (01) ==
LOC: SSTAY O 07:49
PROVIDERS: ATTEND Radiology Vascular & Interventional Radiology
DX: R18.8 Other ascites (principal); Z88.5 Allergy status to narcotic agent; Z91.041 Radiographic dye allergy status
CPT/HCPCS: 49083; C1729; J7030

== ENCOUNTER 2019-03-19 09:55 | Emergency (ER) | payer BC, MEDICAID ==
[~2019-03-19] VITALS: Ht 172.7 cm; Wt 85.0 kg
--- NOTE | 2019-03-19 11:42 | NUR ---
telecommunications technician is with the patient at this time for lab draw.
--- NOTE | 2019-03-19 11:48 | NUR ---
Phoned wound care and left a message regarding the patient's bilateral lower extremities. The patient has been receiving wound care as an outpatient [facility] and the last time the dressings were changed was one week ago. The legs are swelling around the elastic coban dressings and draining yellow fluid on the linens. Pt has chronic liver failure with anasarca edema.
[2019-03-19 11:49] LABS: CLARITY,URINE CLEAR (Clear); COLOR,URINE YELLOW (Yellow); GLUCOSE, URINE NEGATIVE (Neg); KETONES,URINE NEGATIVE (Neg); LEUKOCYTE ESTERASE ,URINE NEGATIVE (Neg); NITRITES, URINE NEGATIVE (Neg); OCCULT BLOOD,URINE NEGATIVE (Neg); PH,URINE 7.5 (4.8-8.0); PROTEIN,URINE NEGATIVE (Neg)
[2019-03-19 11:50] LABS: UA COLLECTION TYPE URINAL
--- NOTE | 2019-03-19 12:00 | NUR ---
Occlusive dressings cut off of bilateral lower extremities to assess the status of the wounds.
[2019-03-19 12:02] LABS: BASOPHILS % (AUTO) 0.4 % (0-1); EOSINOPHILS # (AUTO) 0.1 X10'3 (0-0.9); EOSINOPHILS % (AUTO) 1.4 % (0-6); HEMATOCRIT 28.6 % (42.0-52.0); HEMOGLOBIN 9.4 g/dl (14.0-17.9); LYMPHOCYTES # (AUTO) 0.6 X10'3 (1.1-4.8); LYMPHOCYTES % (AUTO) 13.3 % (21-51); MEAN CORPUSCULAR HEMOGLOBIN 27.7 PG (27.0-31.0); MEAN CORPUSCULAR VOLUME 83.8 FL (78-98); MEAN PLATELET VOLUME 7.7 FL (7.4-10.4); MONOCYTES # (AUTO) 0.4 X10'3 (0-0.9); MONOCYTES % (AUTO) 7.8 % (2-12); NEUTROPHILS # (AUTO) 3.6 X10'3 (1.8-7.7); NEUTROPHILS % (AUTO) 77.1 % (42-75); PLATELET COUNT 118 X10'3 (140-440); RED BLOOD COUNT 3.41 X10'6 (4.70-6.10); RED CELL DISTRIBUTION WIDTH 19.1 % (11.5-14.5); WHITE BLOOD COUNT 4.7 X10'3 (4.5-11.0)
[2019-03-19 12:17] LABS: PARTIAL THROMBOPLASTIN TIME 29 SECONDS (22-32)
[2019-03-19 12:18] LABS: ALANINE AMINOTRANSFERASE 19 U/L (12-78); ALBUMIN/GLOBULIN RATIO 0.4 (1.1-1.5); ALKALINE PHOSPHATASE 143 IU/L (46-116); ANION GAP 5 (8-16); ASPARTATE AMINO TRANSFERASE 30 U/L (10-37); BILIRUBIN,TOTAL 1.6 MG/DL (0.1-1.0); BLOOD UREA NITROGEN 11 MG/DL (7-18); CALCIUM 8.5 MG/DL (8.5-10.1); CHLORIDE 103 MMOL/L (99-107); CREATININE 0.58 MG/DL (0.60-1.10); GLUCOSE 147 MG/DL (70-104); POTASSIUM 3.5 MMOL/L (3.5-5.1); SODIUM 140 MMOL/L (135-145); TOTAL CARBON DIOXIDE 32.2 MMOL/L (24-32); TOTAL PROTEIN 7.3 G/DL (6.4-8.2); eGFR > 90 ML/MIN
--- NOTE | 2019-03-19 12:34 | NUR ---
Phoned inpatient wound care and spoke with Wound Nurse Ivanna, she will call the [facility] to obtain the orders they have been following for his wounds and dressings then will come to the ED to assist with wound care.
--- NOTE | 2019-03-19 13:35 | NUR ---
Photos of the wounds on bilateral lower extremities taken prior to wound care bandaging them.
[2019-03-19] MEDS ORDERED: magnesium hydroxide 30ml (MOM) UD suspension PO ONE (13:45)
[2019-03-19] MEDS ORDERED: lactulose 20gm/30ml cup PO ONE (13:45)
[2019-03-19] MEDS ORDERED: furosemide 10 MG/1 ML 10ml inj IV ONE (13:45)
[2019-03-19] MEDS ORDERED: docusate sod 100mg capsule PO ONE (13:45)
--- NOTE | 2019-03-19 14:15 | NUR ---
Provider made aware the patient does not have an iv access and is a difficult IV start. Inquired if the lasix can be changed to PO instead.
--- NOTE | 2019-03-19 15:05 | NUR ---
Again asked the provider to change the lasix to PO if possible, order pending.
[2019-03-19] MEDS ORDERED: furosemide 40 MG/4 ML oral solution UD cup PO STA (15:09)
[2019-03-19] MEDS ORDERED: CEPH500C5 PO (15:34)
--- NOTE | 2019-03-19 17:11 | NUR ---
PT HAD A BM IN BED[facility].
--- NOTE | 2019-03-19 17:52 | NUR ---
Assisted patient to car via wheelchair.
[2019-03-19 19:34] VITALS: BP 124/64
== END 2019-03-19 17:45 | disposition home or self-care (01) ==
LOC: ER 09:55
DX: I89.0 Lymphedema, not elsewhere classified (principal); K59.00 Constipation, unspecified; K74.60 Unspecified cirrhosis of liver; R10.11 Right upper quadrant pain; J45.909 Unspecified asthma, uncomplicated; E11.9 Type 2 diabetes mellitus without complications; G89.29 Other chronic pain; Z88.6 Allergy status to analgesic agent; Z88.0 Allergy status to penicillin; Z88.5 Allergy status to narcotic agent; Z91.013 Allergy to seafood; Z91.041 Radiographic dye allergy status; Z79.4 Long term (current) use of insulin; Z79.899 Other long term (current) drug therapy
CPT/HCPCS: 36415; 74021; 80053; 81003; 82140; 82948; 85025; 85610; 85730; 99284

== ENCOUNTER 2019-06-19 11:59 | Inpatient (IN) | payer BC, MEDICAID ==
[~2019-06-19] VITALS: Ht 172.7 cm; Wt 85.9 kg
[~2019-06-19 11:59] MED LIST changes: -BUDE10.22 INH; +CEPH250T PO; +FURO-149 PO; +HYDR50CA PO; +LACT10SO32 PO; -POLY17PO10 PO; +RIFA550T PO; -[UNRECOGNIZED DRUG - OTHER] PO
[2019-06-19] MEDS ORDERED: cefepime 2g/NS 100ml ADVANTAGE 100 ML IV ONE (12:05)
[2019-06-19] MEDS ORDERED: vancomycin/NS 1 GM ADD-VANTAGE 250 ML IV ONE (12:05)
[2019-06-19 12:56] LABS: BASOPHILS % (AUTO) 0.4 % (0-1); EOSINOPHILS # (AUTO) 0.1 X10'3 (0-0.9); EOSINOPHILS % (AUTO) 1.3 % (0-6); HEMATOCRIT 29.2 % (42.0-52.0); HEMOGLOBIN 9.9 g/dl (14.0-17.9); LYMPHOCYTES # (AUTO) 0.7 X10'3 (1.1-4.8); LYMPHOCYTES % (AUTO) 7.1 % (21-51); MEAN CORPUSCULAR HEMOGLOBIN 32.2 PG (27.0-31.0); MEAN CORPUSCULAR HGB CONC 33.8 g/dL (33.0-36.5); MEAN CORPUSCULAR VOLUME 95.1 FL (78-98); MEAN PLATELET VOLUME 7.7 FL (7.4-10.4); MONOCYTES # (AUTO) 0.8 X10'3 (0-0.9); MONOCYTES % (AUTO) 7.7 % (2-12); NEUTROPHILS # (AUTO) 8.3 X10'3 (1.8-7.7); NEUTROPHILS % (AUTO) 83.5 % (42-75); PLATELET COUNT 118 X10'3 (140-440); RED BLOOD COUNT 3.07 X10'6 (4.70-6.10)
[2019-06-19 13:08] LABS: PARTIAL THROMBOPLASTIN TIME 38 SECONDS (22-32)
[2019-06-19 13:10] LABS: ALANINE AMINOTRANSFERASE 32 U/L (12-78); ALBUMIN 1.6 G/DL (3.4-5.0); ALBUMIN/GLOBULIN RATIO 0.3 (1.1-1.5); ALKALINE PHOSPHATASE 134 IU/L (46-116); ANION GAP -1 (8-16); ASPARTATE AMINO TRANSFERASE 68 U/L (10-37); BILIRUBIN,TOTAL 1.7 MG/DL (0.1-1.0); BLOOD UREA NITROGEN 27 MG/DL (7-18); BUN/CREATININE RATIO 38.6 (5.4-32.0); CALCIUM 8.4 MG/DL (8.5-10.1); CHLORIDE 99 MMOL/L (99-107); MAGNESIUM 1.7 MG/DL (1.5-2.4); POTASSIUM 4.7 MMOL/L (3.5-5.1); SODIUM 137 MMOL/L (135-145); TOTAL PROTEIN 6.7 G/DL (6.4-8.2); eGFR > 90 ML/MIN
[2019-06-19 13:18] LABS: GLUCOSE 174 MG/DL (70-104)
[2019-06-19] MEDS ORDERED: FURO80TA3 PO (13:21)
[2019-06-19] MEDS ORDERED: LACT10SO57 PO (13:24)
[2019-06-19] MEDS ORDERED: BUDE10.22 INH (13:39)
[2019-06-19] MEDS ORDERED: [UNRECOGNIZED DRUG - OTHER] PO (13:39)
[2019-06-19 14:08] LABS: CLARITY,URINE CLEAR (Clear); COLOR,URINE YELLOW (Yellow); GLUCOSE, URINE NEGATIVE (Neg); KETONES,URINE NEGATIVE (Neg); LEUKOCYTE ESTERASE ,URINE TRACE (Neg); NITRITES, URINE NEGATIVE (Neg); OCCULT BLOOD,URINE NEGATIVE (Neg); PH,URINE 6.5 (4.8-8.0); PROTEIN,URINE NEGATIVE (Neg); UA COLLECTION TYPE URINAL
[2019-06-19 14:18] LABS: BACTERIA,URINE FEW /HPF (Neg); MUCUS STRANDS FEW /LPF (Neg); SQUAMOUS EPITHELIAL CELL,UR FEW /LPF (FEW)
[2019-06-19 14:19] LABS: RBC,URINE 0-2 /HPF (0-2); WBC,URINE 0-4 /HPF (0-4)
--- NOTE | 2019-06-19 15:38 | NUR ---
pt resting comfortably offered pt blanket, will continue to monitor, awating ipa
[2019-06-19] MEDS: normal saline 1000ml 1,000 ML IV SCH (16:28)
[2019-06-19] MEDS ORDERED: HYDROcodone/acetaminophen 5mg/325mg tablet PO PRN (16:30)
[2019-06-19] MEDS ORDERED: acetaminophen 325mg tablet PO PRN ×2 (16:30)
[2019-06-19] MEDS ORDERED: potassium CL 10mEq/100ml bag 100 ML IV PRN ×2 (16:30)
[2019-06-19] MEDS ORDERED: morphine 2 MG/ML inj. syringe IV PRN (16:30)
[2019-06-19] MEDS ORDERED: magnesium 2GM in 50ml NS 50 ML IV PRN (16:30)
[2019-06-19] MEDS ORDERED: magnesium Cl slow-release 64mg tablet PO PRN (16:30)
[2019-06-19] MEDS ORDERED: magnesium 4gm in 100ml NS 100 ML IV PRN (16:30)
[2019-06-19] MEDS ORDERED: mag hydrox/Alum hydrox/simeth 30ml oral suspension PO PRN (16:30)
[2019-06-19] MEDS ORDERED: potassium Cl 20 mEq SR tablet PO PRN ×2 (16:30)
[2019-06-19] MEDS ORDERED: dextrose ORAL solution 15 GM/59 ML bottle PO PRN ×2 (16:50)
[2019-06-19] MEDS ORDERED: MESSAGE TO PHARMACY PO ONE (16:50)
[2019-06-19] MEDS ORDERED: glucagon, human recombinant 1mg kit SUBCUT PRN (16:50)
[2019-06-19] MEDS ORDERED: dextrose 50%-water 50ml dispensing syringe IV PRN ×2 (16:50)
[2019-06-19] MEDS ORDERED: insulin Lispro (HumaLOG) vial - multi-dose SQ SCH (16:50)
--- NOTE | 2019-06-19 16:56 | NUR ---
pt had a1c may 12 2019 5.1
[2019-06-19] MEDS ORDERED: VANCOmycin 1250MG/NS 250ml Bag 250 ML IV SCH (17:00)
[2019-06-19 20:00] VITALS: BP 118/64
[2019-06-19] MEDS: K and/or MAG REPLACEMENT MC SCH (20:00)
[2019-06-19] MEDS: docusate sod 100mg capsule PO SCH (20:37)
[2019-06-19] MEDS: heparin, porcine 5000 units/ml vial SQ SCH (20:39)
[2019-06-19] MEDS ORDERED: insulin glargine (Lantus) pen - multi-dose SQ SCH (21:00)
[2019-06-19] MEDS ORDERED: temazepam 15mg capsule PO PRN (21:00)
[2019-06-19] MEDS: VANCOmycin 1250MG/NS 250ml Bag 250 ML IV SCH (21:30)
[2019-06-20] VITALS: BP 114/63
[2019-06-20] MEDS: VANCOmycin 1250MG/NS 250ml Bag 250 ML IV SCH ×4 (05:20→20:45)
[2019-06-20 06:06] LABS: BASOPHILS % (AUTO) 0.2 % (0-1); EOSINOPHILS # (AUTO) 0.1 X10'3 (0-0.9); EOSINOPHILS % (AUTO) 1.2 % (0-6); HEMATOCRIT 26.3 % (42.0-52.0); HEMOGLOBIN 8.8 g/dl (14.0-17.9); LYMPHOCYTES # (AUTO) 0.8 X10'3 (1.1-4.8); LYMPHOCYTES % (AUTO) 13.6 % (21-51); MEAN CORPUSCULAR HGB CONC 33.4 g/dL (33.0-36.5); MEAN CORPUSCULAR VOLUME 95.8 FL (78-98); MEAN PLATELET VOLUME 8.2 FL (7.4-10.4); MONOCYTES # (AUTO) 0.5 X10'3 (0-0.9); MONOCYTES % (AUTO) 8.6 % (2-12); NEUTROPHILS # (AUTO) 4.7 X10'3 (1.8-7.7); NEUTROPHILS % (AUTO) 76.4 % (42-75); PLATELET COUNT 103 X10'3 (140-440); RED BLOOD COUNT 2.75 X10'6 (4.70-6.10); RED CELL DISTRIBUTION WIDTH 17.2 % (11.5-14.5); WHITE BLOOD COUNT 6.1 X10'3 (4.5-11.0)
[2019-06-20 06:25] LABS: ALANINE AMINOTRANSFERASE 25 U/L (12-78); ALBUMIN 1.3 G/DL (3.4-5.0); ALBUMIN/GLOBULIN RATIO 0.3 (1.1-1.5); ALKALINE PHOSPHATASE 113 IU/L (46-116); ANION GAP -2 (8-16); ASPARTATE AMINO TRANSFERASE 41 U/L (10-37); BILIRUBIN,TOTAL 1.2 MG/DL (0.1-1.0); BLOOD UREA NITROGEN 24 MG/DL (7-18); BUN/CREATININE RATIO 35.3 (5.4-32.0); CALCIUM 7.9 MG/DL (8.5-10.1); CHLORIDE 102 MMOL/L (99-107); CREATININE 0.68 MG/DL (0.60-1.10); MAGNESIUM 1.6 MG/DL (1.5-2.4); POTASSIUM 4.4 MMOL/L (3.5-5.1); SODIUM 139 MMOL/L (135-145); TOTAL CARBON DIOXIDE 39.4 MMOL/L (24-32); TOTAL PROTEIN 5.7 G/DL (6.4-8.2); eGFR > 90 ML/MIN
--- NOTE | 2019-06-20 06:25 | NUR ---
Patient in room [facility]. I have received report from TINY Hernandez and had the opportunity to ask questions and assume patient care.
[2019-06-20 06:26] LABS: GLUCOSE 172 MG/DL (70-104)
[2019-06-20 06:30] VITALS: BP 109/52
[2019-06-20] MEDS: normal saline 1000ml 1,000 ML IV SCH ×2 (06:46→11:02)
[2019-06-20] MEDS: K and/or MAG REPLACEMENT MC SCH ×2 (07:04→20:00)
[2019-06-20] MEDS ORDERED: ipratropium/albuterol 3ml nebule IH PRN (08:30)
[2019-06-20] MEDS: budesonide 0.5mg/2ml UD nebule IH SCH ×2 (09:00→20:21)
[2019-06-20] MEDS: lactulose 20gm/30ml cup PO SCH (09:24)
[2019-06-20] MEDS: lactobacillus rhamnosus 10,000 MMU CELLS/CAPSULE PO SCH ×2 (09:24→20:23)
[2019-06-20] MEDS: cetirizine 10mg tablet PO SCH (09:25)
[2019-06-20] MEDS: heparin, porcine 5000 units/ml vial SQ SCH ×2 (09:25→20:25)
[2019-06-20] MEDS: docusate sod 100mg capsule PO SCH ×2 (09:25→20:23)
[2019-06-20] MEDS: HYDROcodone/acetaminophen 10/325mg tab PO PRN ×2 (09:27→20:23)
[2019-06-20] MEDS: rifaximin 550mg tablet PO SCH ×2 (10:54→20:24)
[2019-06-20] MEDS: ketorolac tromethamine 15mg/ml inj. IV PRN (10:55)
[2019-06-20 11:00] VITALS: BP 135/65
[2019-06-20] MEDS: albuterol 2.5 MG/3 ML nebule NEB SCH ×2 (14:35→20:20)
--- NOTE | 2019-06-20 15:12 | NUR ---
DM/wound consult: Pt with A1c 4.8, down from 5.1 last month per records. DM education not warranted at this time. Per [facility] notes pt with partial thick venous ulcer to left calf and foot, full thick venous ulcer somewhat necrotic to right ankle, and necrotic DM ulcer to left 5th toe and right 1st metatarsal head. Pt currently on a CHO controlled diet documented with 100% PO intake. D/w dietary to send double protein TID for additional protein needs. Attempted visit with pt however pt unavailable. Pt recently admitted and seen by RADHA for protein education. Pt reports he drinks protein shakes and eats protein bars for increased protein needs. Pt would benefit from protein smoothie made with Chano for wound healing needs, paged MD regarding ONS recommendation. LB 06/19. Will continue to follow and monitor need for further nutrition intervention. Recommendations: 1) Continue CHO controlled diet 2) Double eggs q breakfast, double protein BIDLD 3) [place] smoothie BIDBD, pending MD approval in [employer] 4) Routine bowel care 5) Wt per rx Addendum: 06/20/19 at [address] Amended: Links added.
--- NOTE | 2019-06-20 18:20 | NUR ---
Problems reprioritized. Patient report given, questions answered & plan of care reviewed with TINY Vincent.
--- NOTE | 2019-06-20 18:41 | NUR ---
Patient in room [facility]. I have received report from DAVID FRANKS and had the opportunity to ask questions and assume patient care. Addendum: 06/20/19 at 1841 by Melisa Samson RN Amended: Links added.
[2019-06-20 19:00] VITALS: BP 127/61
[2019-06-20] MEDS ORDERED: glucagon, human recombinant 1mg kit SUBCUT PRN (19:30)
[2019-06-20] MEDS ORDERED: dextrose ORAL solution 15 GM/59 ML bottle PO PRN ×2 (19:30)
[2019-06-20] MEDS ORDERED: insulin Lispro (HumaLOG) vial - multi-dose SQ SCH (19:30)
[2019-06-20] MEDS ORDERED: MESSAGE TO PHARMACY PO ONE (19:30)
[2019-06-20] MEDS ORDERED: dextrose 50%-water 50ml dispensing syringe IV PRN ×2 (19:30)
--- NOTE | 2019-06-20 19:50 | NUR ---
pt took hs meds medicated for c/o pain with po norco for this.
[2019-06-20] MEDS ORDERED: VANCOMYCIN LEVEL IV ONE (20:30)
[2019-06-20] MEDS ORDERED: insulin glargine (Lantus) pen - multi-dose SQ SCH (21:00)
--- NOTE | 2019-06-20 21:00 | NUR ---
pt a/o pleasant no complaints at this time.
--- NOTE | 2019-06-20 23:00 | NUR ---
pt resting eyes closed no changes.
[2019-06-21] VITALS: BP 113/52
--- NOTE | 2019-06-21 01:00 | NUR ---
resting eyes closed without changes up in chair states he feels his breathing is better.
[2019-06-21] MEDS: albuterol 2.5 MG/3 ML nebule NEB SCH ×4 (02:41→20:36)
[2019-06-21] MEDS: normal saline 1000ml 1,000 ML IV SCH (02:53)
--- NOTE | 2019-06-21 03:00 | NUR ---
pt a/ rt completed tx and new bag iv solution hung on pt tolerated well. pt denies complaints at this time.
--- NOTE | 2019-06-21 03:32 | NUR ---
Problems reprioritized. Patient report given, questions answered & plan of care reviewed with Марина Parish Rn.
--- NOTE | 2019-06-21 03:45 | NUR ---
Patient in room [facility] 346. I have received report from KATHERINE FRANKS and had the opportunity to ask questions and assume patient care.
[2019-06-21 05:24] LABS: BASOPHILS % (AUTO) 0.4 % (0-1); EOSINOPHILS # (AUTO) 0.1 X10'3 (0-0.9); EOSINOPHILS % (AUTO) 2.1 % (0-6); HEMATOCRIT 28.5 % (42.0-52.0); HEMOGLOBIN 9.4 g/dl (14.0-17.9); LYMPHOCYTES # (AUTO) 0.8 X10'3 (1.1-4.8); LYMPHOCYTES % (AUTO) 16.1 % (21-51); MEAN CORPUSCULAR HEMOGLOBIN 31.4 PG (27.0-31.0); MEAN CORPUSCULAR HGB CONC 32.9 g/dL (33.0-36.5); MEAN CORPUSCULAR VOLUME 95.4 FL (78-98); MEAN PLATELET VOLUME 7.8 FL (7.4-10.4); MONOCYTES # (AUTO) 0.5 X10'3 (0-0.9); NEUTROPHILS # (AUTO) 3.6 X10'3 (1.8-7.7); NEUTROPHILS % (AUTO) 71.4 % (42-75); PLATELET COUNT 115 X10'3 (140-440); RED BLOOD COUNT 2.99 X10'6 (4.70-6.10); RED CELL DISTRIBUTION WIDTH 17.6 % (11.5-14.5)
[2019-06-21] MEDS: VANCOmycin 1250MG/NS 250ml Bag 250 ML IV SCH ×3 (05:25→20:44)
[2019-06-21 05:40] LABS: ALANINE AMINOTRANSFERASE 26 U/L (12-78); ALBUMIN 1.4 G/DL (3.4-5.0); ALBUMIN/GLOBULIN RATIO 0.3 (1.1-1.5); ALKALINE PHOSPHATASE 119 IU/L (46-116); ANION GAP -3 (8-16); ASPARTATE AMINO TRANSFERASE 49 U/L (10-37); BILIRUBIN,TOTAL 1.1 MG/DL (0.1-1.0); BLOOD UREA NITROGEN 24 MG/DL (7-18); BUN/CREATININE RATIO 34.3 (5.4-32.0); CALCIUM 8.4 MG/DL (8.5-10.1); CHLORIDE 102 MMOL/L (99-107); MAGNESIUM 1.8 MG/DL (1.5-2.4); POTASSIUM 4.3 MMOL/L (3.5-5.1); SODIUM 139 MMOL/L (135-145); TOTAL CARBON DIOXIDE 39.5 MMOL/L (24-32); TOTAL PROTEIN 6.1 G/DL (6.4-8.2); eGFR > 90 ML/MIN
[2019-06-21 05:43] LABS: GLUCOSE 152 MG/DL (70-104)
--- NOTE | 2019-06-21 06:30 | NUR ---
Problems reprioritized. Patient report given, questions answered & plan of care reviewed with VICTORINA FRANKS.
[2019-06-21 07:00] VITALS: BP 122/65
[2019-06-21] MEDS: JUVEN Smoothie Arginine/Glut./Ca2+Bmb (Juven 19.3pkt) 240ml cup PO SCH ×2 (07:30→12:44)
[2019-06-21] MEDS: K and/or MAG REPLACEMENT MC SCH ×2 (08:00→20:00)
[2019-06-21] MEDS: docusate sod 100mg capsule PO SCH ×2 (08:15→20:44)
[2019-06-21] MEDS: lactobacillus rhamnosus 10,000 MMU CELLS/CAPSULE PO SCH ×2 (08:15→20:44)
[2019-06-21] MEDS: cetirizine 10mg tablet PO SCH (08:15)
[2019-06-21] MEDS: rifaximin 550mg tablet PO SCH ×2 (08:15→20:44)
[2019-06-21] MEDS: budesonide 0.5mg/2ml UD nebule IH SCH ×2 (08:16→20:36)
[2019-06-21] MEDS: lactulose 20gm/30ml cup PO SCH (08:16)
[2019-06-21] MEDS: heparin, porcine 5000 units/ml vial SQ SCH ×3 (08:19→20:45)
[2019-06-21] MEDS: ondansetron/PF 4mg/2ml inj IV PRN (09:52)
[2019-06-21] MEDS: ketorolac tromethamine 15mg/ml inj. IV PRN (09:53)
[2019-06-21] MEDS: piperacillin/tazo 3.375gm/50ml 50 ML IV SCH ×3 (10:12→23:21)
[2019-06-21 11:00] VITALS: BP 112/62
[2019-06-21] MEDS ORDERED: ringers solution, lacted 1,000 ML IV ONE (14:59)
--- NOTE | 2019-06-21 18:20 | NUR ---
Problems reprioritized. Patient report given, questions answered & plan of care reviewed with Melisa FRANKS.
--- NOTE | 2019-06-21 18:48 | NUR ---
Patient in room [facility] 346. I have received report from VICTORINA FRANKS and had the opportunity to ask questions and assume patient care. Addendum: 06/21/19 at 1849 by Melisa Samson RN Amended: Links added.
[2019-06-21 19:00] VITALS: BP_SYST 113; BP_SYST 126; BP_DIAS 57; BP_DIAS 72
--- NOTE | 2019-06-21 22:12 | NUR ---
legs elevated resting in chair . appears comfortable without s&s of distress at this time.
[2019-06-21] MEDS: HYDROcodone/acetaminophen 10/325mg tab PO PRN (23:21)
--- NOTE | 2019-06-21 23:22 | NUR ---
pt awoke inc of urine and ski8n care done. medicated for pain to legs 10/12. legs elevated and dressing retaped d/i to left foot.
[2019-06-22] VITALS (18 sets, daily range): BP systolic 102–128; BP diastolic 50–74
--- NOTE | 2019-06-22 01:09 | NUR ---
pt awake in chair. surgical bath completed NPO since midnight and positioned to comfort. using urinal to void. dressings on legs intact.
[2019-06-22] MEDS: normal saline 1000ml 1,000 ML IV SCH ×2 (01:40→16:01)
--- NOTE | 2019-06-22 02:00 | NUR ---
PT DRESSINGS TO FEET PART CUT OFF THEN REINFORRCED WITH NEW ABD PAD AND KURLIX WRAP. FEET WEEPING MORE TONIGHT. PT TRANSFERRED WITH NEGATIVE TOE WEIGHT BOOTS SHOES ON WITH PIVOT INTO BED. PT TOLERATED FAIR. LEGS ELEVATED UP ON PILLOWS. RT IN TO DO RESP TX AT THIS TIME. PT POSITIONED IN BED TO COMFORT.
[2019-06-22] MEDS: albuterol 2.5 MG/3 ML nebule NEB SCH ×4 (02:11→20:04)
--- NOTE | 2019-06-22 03:48 | NUR ---
in bed resting remains npo no s&s of distress at this time.
[2019-06-22 05:11] LABS: BASOPHILS % (AUTO) 0.4 % (0-1); EOSINOPHILS # (AUTO) 0.1 X10'3 (0-0.9); EOSINOPHILS % (AUTO) 2.5 % (0-6); HEMOGLOBIN 8.9 g/dl (14.0-17.9); LYMPHOCYTES # (AUTO) 0.9 X10'3 (1.1-4.8); LYMPHOCYTES % (AUTO) 16.2 % (21-51); MEAN CORPUSCULAR HEMOGLOBIN 31.9 PG (27.0-31.0); MEAN CORPUSCULAR HGB CONC 33.1 g/dL (33.0-36.5); MEAN CORPUSCULAR VOLUME 96.4 FL (78-98); MEAN PLATELET VOLUME 7.9 FL (7.4-10.4); MONOCYTES # (AUTO) 0.6 X10'3 (0-0.9); MONOCYTES % (AUTO) 10.8 % (2-12); NEUTROPHILS # (AUTO) 3.8 X10'3 (1.8-7.7); NEUTROPHILS % (AUTO) 70.1 % (42-75); PLATELET COUNT 120 X10'3 (140-440); RED CELL DISTRIBUTION WIDTH 17.2 % (11.5-14.5); WHITE BLOOD COUNT 5.5 X10'3 (4.5-11.0)
[2019-06-22 05:22] LABS: ALANINE AMINOTRANSFERASE 28 U/L (12-78); ALBUMIN 1.3 G/DL (3.4-5.0); ALBUMIN/GLOBULIN RATIO 0.3 (1.1-1.5); ALKALINE PHOSPHATASE 122 IU/L (46-116); ANION GAP -5 (8-16); ASPARTATE AMINO TRANSFERASE 47 U/L (10-37); BILIRUBIN,TOTAL 1.1 MG/DL (0.1-1.0); BLOOD UREA NITROGEN 23 MG/DL (7-18); BUN/CREATININE RATIO 33.3 (5.4-32.0); CALCIUM 8.3 MG/DL (8.5-10.1); CHLORIDE 103 MMOL/L (99-107); CREATININE 0.69 MG/DL (0.60-1.10); MAGNESIUM 1.9 MG/DL (1.5-2.4); SODIUM 137 MMOL/L (135-145); TOTAL CARBON DIOXIDE 38.5 MMOL/L (24-32); TOTAL PROTEIN 5.9 G/DL (6.4-8.2); eGFR > 90 ML/MIN
[2019-06-22] MEDS: JUVEN Smoothie Arginine/Glut./Ca2+Bmb (Juven 19.3pkt) 240ml cup PO SCH ×2 (05:23→12:30)
[2019-06-22 05:24] LABS: GLUCOSE 122 MG/DL (70-104)
[2019-06-22] MEDS: VANCOmycin 1250MG/NS 250ml Bag 250 ML IV SCH ×3 (05:25→22:41)
--- NOTE | 2019-06-22 05:30 | NUR ---
PT REQUESTED WATER REMINDED HIM HE IS NPO FOR SURGERY. HELD AM PROTEIN SHAKE FOR PT AND NPO SIGN AT THE DOOR. PT NPO SINCE MIDNIGHT. DOZING ON AND OFF.
[2019-06-22] MEDS ORDERED: famotidine 20mg tablet PO ONE (06:00)
--- NOTE | 2019-06-22 06:35 | NUR ---
Problems reprioritized. Patient report given, questions answered & plan of care reviewed with ESTEBAN SUN RN. Addendum: 06/22/19 at 0635 by Melisa Samson RN Amended: Links added.
--- NOTE | 2019-06-22 06:45 | NUR ---
Patient in room [facility] 346A. I have received report from TINY MURPHY and had the opportunity to ask questions and assume patient care.
[2019-06-22] MEDS ORDERED: BUPIVAcaine/PF 2.5 mg/ml (0.25%) 30ml vial ONE (07:25)
[2019-06-22] MEDS: K and/or MAG REPLACEMENT MC SCH ×2 (07:32→20:00)
[2019-06-22] MEDS ORDERED: ringers solution, lacted 1,000 ML IV SCH (07:41)
[2019-06-22] MEDS ORDERED: HYDROmorphone inj. 0.5 MG/0.5 ML DISP.SYRIN IV PRN ×2 (07:45)
[2019-06-22] MEDS ORDERED: ondansetron/PF 4mg/2ml inj IV PRN (07:45)
[2019-06-22] MEDS ORDERED: hydrALAZINE 20mg/ml inj. IV PRN (07:45)
[2019-06-22] MEDS ORDERED: labetalol 20mg/4ml (5mg/ml) syringe IV PRN (07:45)
[2019-06-22] MEDS: budesonide 0.5mg/2ml UD nebule IH SCH ×2 (07:53→20:04)
[2019-06-22] MEDS: heparin, porcine 5000 units/ml vial SQ SCH ×2 (08:00→22:38)
[2019-06-22] MEDS: lactulose 20gm/30ml cup PO SCH (08:14)
[2019-06-22] MEDS: rifaximin 550mg tablet PO SCH ×2 (08:15→22:35)
[2019-06-22] MEDS: docusate sod 100mg capsule PO SCH ×2 (08:15→22:34)
[2019-06-22] MEDS: cetirizine 10mg tablet PO SCH (08:16)
[2019-06-22] MEDS: lactobacillus rhamnosus 10,000 MMU CELLS/CAPSULE PO SCH ×2 (08:17→22:34)
[2019-06-22] MEDS: piperacillin/tazo 3.375gm/50ml 50 ML IV SCH ×2 (08:47→16:02)
[2019-06-22] MEDS ORDERED: fentaNYL/PF 50MCG/1 ML 2ML syringe ONE (10:44)
[2019-06-22] MEDS ORDERED: albumin (Human) 5% 250ml 250 ML IV ONE ×3 (10:56→10:57)
--- NOTE | 2019-06-22 11:56 | NUR ---
Received from OR via BED, accompanied by Anesthesiologist DR JONES and report given by Anesthesiologist. PT DROWSY, DENIES PAIN, PT W/SAB, DERMATOME LEVEL L-1, LEFT FOOT W/WOUND VAC TO 125MMGH LCS W/SCANT AMT OF S/S DRAINAGE IN TUBING, JENARO WRAP COVERING LOWER LEFT LEG CDI, RIGHT LEG W/GAUZE DRSG COVERING LEG, UNABLE TO ACCESS PULSES, PALPABLE PULSES TO LEFT TIBIAL, PEDAL PULSES. Addendum: 06/22/19 at 1233 by Barb Akhtar RN Amended: Links added.
--- NOTE | 2019-06-22 12:56 | NUR ---
Report called to receiving nurse. Transferred via BED NO Belongings, BLL, CALL LIGHT GIVEN, SIDE RAILS UP X 2, RECEIVING RN NOTIFIED OF PTS ARRIVAL. Special Issues communicated to receiving nurse. YES. Addendum: 06/22/19 at 1300 by Barb Akhtar RN Amended: Links added.
--- NOTE | 2019-06-22 18:15 | NUR ---
Patient in room [facility] 346. I have received report from Vianey FRANKS and had the opportunity to ask questions and assume patient care.
--- NOTE | 2019-06-22 18:22 | NUR ---
Problems reprioritized. Patient report given, questions answered & plan of care reviewed with TINY MARTINI.
[2019-06-22] MEDS: HYDROcodone/acetaminophen 10/325mg tab PO PRN (22:37)
--- NOTE | 2019-06-22 23:40 | NUR ---
pt requested to have blood sugar checked. Accucheck was 133. Pt had no signs or symptoms of distress.
[2019-06-23] MEDS: piperacillin/tazo 3.375gm/50ml 50 ML IV SCH ×4 (00:45→23:58)
[2019-06-23] MEDS: albuterol 2.5 MG/3 ML nebule NEB SCH ×4 (02:32→19:26)
[2019-06-23 04:00] VITALS: BP 122/53
[2019-06-23] MEDS: VANCOmycin 1250MG/NS 250ml Bag 250 ML IV SCH (04:13)
[2019-06-23 05:24] LABS: BASOPHILS % (AUTO) 0.4 % (0-1); EOSINOPHILS # (AUTO) 0.1 X10'3 (0-0.9); HEMATOCRIT 24.4 % (42.0-52.0); LYMPHOCYTES # (AUTO) 0.7 X10'3 (1.1-4.8); LYMPHOCYTES % (AUTO) 11.9 % (21-51); MEAN CORPUSCULAR HEMOGLOBIN 31.6 PG (27.0-31.0); MEAN CORPUSCULAR HGB CONC 32.9 g/dL (33.0-36.5); MEAN CORPUSCULAR VOLUME 96.1 FL (78-98); MEAN PLATELET VOLUME 7.8 FL (7.4-10.4); MONOCYTES # (AUTO) 0.6 X10'3 (0-0.9); MONOCYTES % (AUTO) 9.7 % (2-12); NEUTROPHILS # (AUTO) 4.3 X10'3 (1.8-7.7); PLATELET COUNT 116 X10'3 (140-440); RED BLOOD COUNT 2.54 X10'6 (4.70-6.10); RED CELL DISTRIBUTION WIDTH 17.2 % (11.5-14.5); WHITE BLOOD COUNT 5.7 X10'3 (4.5-11.0)
[2019-06-23 05:49] LABS: ALANINE AMINOTRANSFERASE 22 U/L (12-78); ALBUMIN 1.5 G/DL (3.4-5.0); ALBUMIN/GLOBULIN RATIO 0.3 (1.1-1.5); ALKALINE PHOSPHATASE 110 IU/L (46-116); ANION GAP 0 (8-16); ASPARTATE AMINO TRANSFERASE 43 U/L (10-37); BLOOD UREA NITROGEN 19 MG/DL (7-18); BUN/CREATININE RATIO 29.7 (5.4-32.0); CALCIUM 8.3 MG/DL (8.5-10.1); CHLORIDE 103 MMOL/L (99-107); CREATININE 0.64 MG/DL (0.60-1.10); POTASSIUM 4.4 MMOL/L (3.5-5.1); SODIUM 141 MMOL/L (135-145); TOTAL CARBON DIOXIDE 38.3 MMOL/L (24-32); TOTAL PROTEIN 5.8 G/DL (6.4-8.2); eGFR > 90 ML/MIN
[2019-06-23 05:56] LABS: GLUCOSE 123 MG/DL (70-104)
[2019-06-23] MEDS: normal saline 1000ml 1,000 ML IV SCH (06:16)
--- NOTE | 2019-06-23 06:25 | NUR ---
Problems reprioritized. Patient report given, questions answered & plan of care reviewed with Agnes FRANKS. Patient is currently laying in bed sleeping with his eyes open and respirations steady.
[2019-06-23 08:00] VITALS: BP 123/68
[2019-06-23] MEDS: K and/or MAG REPLACEMENT MC SCH ×2 (08:00→20:00)
[2019-06-23] MEDS: cetirizine 10mg tablet PO SCH (08:15)
[2019-06-23] MEDS: lactulose 20gm/30ml cup PO SCH (08:15)
[2019-06-23] MEDS: lactobacillus rhamnosus 10,000 MMU CELLS/CAPSULE PO SCH ×2 (08:15→21:07)
[2019-06-23] MEDS: docusate sod 100mg capsule PO SCH ×2 (08:15→21:07)
[2019-06-23] MEDS: heparin, porcine 5000 units/ml vial SQ SCH ×2 (08:16→21:08)
[2019-06-23] MEDS: rifaximin 550mg tablet PO SCH ×2 (08:18→21:07)
[2019-06-23] MEDS: JUVEN Smoothie Arginine/Glut./Ca2+Bmb (Juven 19.3pkt) 240ml cup PO SCH ×2 (08:20→12:41)
[2019-06-23] MEDS: budesonide 0.5mg/2ml UD nebule IH SCH ×2 (08:45→19:26)
[2019-06-23 09:32] LABS: CREATININE 0.65 MG/DL (0.60-1.10); eGFR > 90 ML/MIN
[2019-06-23 11:00] VITALS: BP 121/66
[2019-06-23] MEDS: HYDROcodone/acetaminophen 10/325mg tab PO PRN ×2 (16:21→21:10)
--- NOTE | 2019-06-23 17:24 | NUR ---
[facility] INFORMATION: REF: [id number] LOT: [id number] EXP: 03/04/2020
--- NOTE | 2019-06-23 18:39 | NUR ---
Patient in room [facility] 346. I have received report from Agnes FRANKS and had the opportunity to ask questions and assume patient care.
[2019-06-23 20:00] VITALS: BP 139/76
[2019-06-24 00:06] VITALS: BP 138/54
--- NOTE | 2019-06-24 00:10 | NUR ---
Patient requested to talk to this nurse. Pt. requested that he does not feel he is adequately being taken care of. Asked patient what was wrong. Pt. stated that he has not been getting zohydro or dilaudid since he has been here. I informed him that when he was admitted these medications were held by the MD and that the hospitalist in the AM could go over his meds. Offered to give toradol for pain and pt. refused. Offered to give restoril for sleep and patient refused. Offered to reposition him, pt. refused. Re-visited that idea of having restoril to sleep, and patient agreed to take. Addendum: 06/24/19 at 0016 by Shayla Sheffield RN Patient did not show any s/s of pain at this time. Pt. had received norco a couple of hours ago.
[2019-06-24] MEDS: albuterol 2.5 MG/3 ML nebule NEB SCH ×3 (02:39→14:54)
[2019-06-24 05:35] LABS: BASOPHILS % (AUTO) 0.2 % (0-1); EOSINOPHILS # (AUTO) 0.1 X10'3 (0-0.9); HEMATOCRIT 24.9 % (42.0-52.0); HEMOGLOBIN 8.4 g/dl (14.0-17.9); LYMPHOCYTES # (AUTO) 0.8 X10'3 (1.1-4.8); MEAN CORPUSCULAR HEMOGLOBIN 32.2 PG (27.0-31.0); MEAN CORPUSCULAR HGB CONC 33.6 g/dL (33.0-36.5); MEAN CORPUSCULAR VOLUME 95.9 FL (78-98); MEAN PLATELET VOLUME 7.5 FL (7.4-10.4); MONOCYTES # (AUTO) 0.6 X10'3 (0-0.9); MONOCYTES % (AUTO) 8.4 % (2-12); NEUTROPHILS # (AUTO) 5.1 X10'3 (1.8-7.7); NEUTROPHILS % (AUTO) 77.4 % (42-75); PLATELET COUNT 118 X10'3 (140-440); RED CELL DISTRIBUTION WIDTH 17.4 % (11.5-14.5); WHITE BLOOD COUNT 6.6 X10'3 (4.5-11.0)
[2019-06-24 05:47] LABS: ALANINE AMINOTRANSFERASE 22 U/L (12-78); ALBUMIN 1.5 G/DL (3.4-5.0); ALBUMIN/GLOBULIN RATIO 0.3 (1.1-1.5); ALKALINE PHOSPHATASE 107 IU/L (46-116); ANION GAP -5 (8-16); ASPARTATE AMINO TRANSFERASE 38 U/L (10-37); BILIRUBIN,TOTAL 0.7 MG/DL (0.1-1.0); BLOOD UREA NITROGEN 21 MG/DL (7-18); BUN/CREATININE RATIO 35.6 (5.4-32.0); CALCIUM 8.6 MG/DL (8.5-10.1); CHLORIDE 104 MMOL/L (99-107); CREATININE 0.59 MG/DL (0.60-1.10); GLUCOSE 167 MG/DL (70-104); MAGNESIUM 1.9 MG/DL (1.5-2.4); POTASSIUM 4.7 MMOL/L (3.5-5.1); SODIUM 139 MMOL/L (135-145); TOTAL CARBON DIOXIDE 39.9 MMOL/L (24-32); eGFR > 90 ML/MIN
--- NOTE | 2019-06-24 06:40 | NUR ---
Problems reprioritized. Patient report given, questions answered & plan of care reviewed with Winnie RN.
[2019-06-24 07:00] VITALS: BP 137/62
--- NOTE | 2019-06-24 07:11 | NUR ---
Patient in room [facility] 346. I have received report from Shayla Nieto and had the opportunity to ask questions and assume patient care.
[2019-06-24] MEDS: cetirizine 10mg tablet PO SCH (07:58)
[2019-06-24] MEDS: lactobacillus rhamnosus 10,000 MMU CELLS/CAPSULE PO SCH (07:58)
[2019-06-24] MEDS: docusate sod 100mg capsule PO SCH (07:58)
[2019-06-24] MEDS: heparin, porcine 5000 units/ml vial SQ SCH (07:59)
[2019-06-24] MEDS: K and/or MAG REPLACEMENT MC SCH (08:00)
[2019-06-24] MEDS: lactulose 20gm/30ml cup PO SCH (08:00)
[2019-06-24] MEDS: rifaximin 550mg tablet PO SCH (08:11)
[2019-06-24] MEDS: ondansetron/PF 4mg/2ml inj IV PRN (08:11)
[2019-06-24] MEDS: HYDROcodone/acetaminophen 10/325mg tab PO PRN (08:11)
[2019-06-24] MEDS: piperacillin/tazo 3.375gm/50ml 50 ML IV SCH ×2 (08:11→16:19)
[2019-06-24] MEDS: JUVEN Smoothie Arginine/Glut./Ca2+Bmb (Juven 19.3pkt) 240ml cup PO SCH ×2 (08:21→13:01)
[2019-06-24] MEDS: budesonide 0.5mg/2ml UD nebule IH SCH (10:07)
[2019-06-24 11:00] VITALS: BP 148/67
--- NOTE | 2019-06-24 17:51 | NUR ---
Problems reprioritized. Patient report given, questions answered & plan of care reviewed with Taqueria Nieto at [facility]. pt A & O x4, pt states he is ready to go to rehab and get stronger. Pt is in good spirits. pt's Wound vac was clampped and wrapped to maintain cleaniness. Rn at [facility] aware of pt's need for wound vac. All pt's personal belongings were packed and send in bags. [facility] staff carried them out.
--- NOTE | 2019-06-24 19:15 | NUR ---
Family called regarding patient's medications zohydro, dilaudid, aldactone and lasix that were held at this facility. Explained to them that these were held when patient was admitted per MD's discretion regarding condition of patient and labs at that time, and are reviewed daily. Explained that now patient had been transferred to [facility], they will need to talk to the MD at that facility . The name of these medications and doses were given to family. I also contacted [facility] and spoke to charge nurse regarding this matter.
[2019-06-25] MEDS ORDERED: DOCU-148 PO (20:39)
[2019-06-25] MEDS ORDERED: HYDR-4353 PO (20:41)
== END 2019-06-24 17:40 | DRG 617 ==
LOC: ER 11:59 → ED HOLD 16:28 → SUR 3N 19:06 → CMPBEDREQ 19:44 → SUR 3N 06-21 09:39
PROVIDERS: ADMIT Internal Medicine; ATTEND Family Medicine
PROC: 0Y6Y0Z1 Detachment at Left 5th Toe, High, Open Approach (ICD-10-PCS; principal; 2019-06-22 10:36)
PROC: 02HV33Z Insertion of Infusion Device into Superior Vena Cava, Percutaneous Approach (ICD-10-PCS; 2019-06-23)
PROC: B548ZZA Ultrasonography of Superior Vena Cava, Guidance (ICD-10-PCS; 2019-06-23)
DX: E11.69 Type 2 diabetes mellitus with other specified complication (principal); L03.119 Cellulitis of unspecified part of limb; M86.172 Other acute osteomyelitis, left ankle and foot; M86.171 Other acute osteomyelitis, right ankle and foot; E11.621 Type 2 diabetes mellitus with foot ulcer; K75.81 Nonalcoholic steatohepatitis (NASH); D69.59 Other secondary thrombocytopenia; L97.524 Non-pressure chronic ulcer of other part of left foot with necrosis of bone; L97.514 Non-pressure chronic ulcer of other part of right foot with necrosis of bone; D64.9 Anemia, unspecified; G89.4 Chronic pain syndrome; I87.8 Other specified disorders of veins; J45.909 Unspecified asthma, uncomplicated; K74.60 Unspecified cirrhosis of liver; I10 Essential (primary) hypertension; Z88.6 Allergy status to analgesic agent; Z91.041 Radiographic dye allergy status; Z88.5 Allergy status to narcotic agent; Z91.013 Allergy to seafood; Z79.899 Other long term (current) drug therapy; Z79.4 Long term (current) use of insulin; Z99.81 Dependence on supplemental oxygen
CPT/HCPCS: 36415; 36573; 71045; 73700; 76604; 76937; 80053; 80202; 81001; 82565; 82948; 83036; 83605; 83735; 84145; 85025; 85610; 85730; 86885; 86900; 86901; 87040; 87081; 87088; 93005; 94640; 94760; 96365; 97110; 97116; 97161; 97530; 99285; A6223; A6446; A6449; A6550; A7000; G0378; J0692; J1644; J1815; J1885; J2405; J2543; J3010; J3370; J3490; J7030; J7120; J7626; P9045